=== PATIENT | male | born 1950 | race Caucasian/White ===

== ENCOUNTER 2021-11-19 00:38 | Inpatient (IN) ==
[2021-11-19] MEDS ORDERED: cefTRIAXone 2,000 MG in 0.9 % Sodium Chloride 10 ML IVP ONE (00:40)
[2021-11-19] MEDS ORDERED: Azithromycin 500 MG in 0.9 % Sodium Chloride 250 ML IVPB ONE (00:40)
[2021-11-19] MEDS ORDERED: Haloperidol Lactate 5 MG/ML VIAL IVP ONE ×2 (00:42→23:04)
[2021-11-19 01:55] LABS: Basophils % 0.5 %; Eosinophils # 0.2 K/mcL (0.0-0.6); Eosinophils % 1.9 %; Hematocrit 43.7 % (37.5-50.1); Hemoglobin 14.6 g/dL (12.9-16.9); Immature Granulocytes % 0.7 % (0-4); Lymphocytes # 1.9 K/mcL (0.6-4.6); Lymphocytes % 21.5 %; Mean Corpuscular HGB Conc 33.4 g/dL (31.6-35.5); Mean Corpuscular Hemoglobin 31.3 pg (28.0-33.3); Mean Corpuscular Volume 93.8 fL (83.0-100.0); Mean Platelet Volume 10.3 fL (9.4-12.4); Monocytes # 0.7 K/mcL (0.0-1.3); Monocytes % 7.9 %; Neutrophils # 5.8 K/mcL (1.6-8.9); Platelet Count 272 K/mcL (140-400); Red Blood Count 4.66 M/mcL (4.19-5.50); Red Cell Distribution Width 12.5 % (11.5-14.5); Segmented Neutrophils % 67.5 %; White Blood Count 8.6 K/mcL (4.3-11.1)
[2021-11-19 02:01] LABS: INR 1.3; Prothrombin Time 14.8 Seconds (9.4-12.1)
[2021-11-19 02:22] LABS: Carbamazepine (Tegretol) 7 mcg/mL (4-12); Valproate 41 mcg/mL (50-100)
[2021-11-19 02:26] LABS: Alanine Aminotransferase 15 Units/L (7-52); Albumin 3.7 g/dL (3.5-5.7); Alkaline Phosphatase 77 Units/L (34-104); Aspartate Amino Transferase 22 Units/L (13-39); BUN/Creatinine Ratio 29 (6-26); Bilirubin,Indirect 0.3 mg/dL (0.0-1.0); Bilirubin,Total 0.3 mg/dL (0.3-1.0); Blood Urea Nitrogen 15 mg/dL (8-23); Calcium 9.8 mg/dL (8.6-10.3); Carbon Dioxide 30 mEq/L (23-29); Chloride 93 mEq/L (98-107); Globulin 3.7 g/dL (2.4-3.5); Glucose 121 mg/dL (70-105); Osmolality,Calculated 280 (280-300); Potassium 4.6 mEq/L (3.5-5.1); Sodium 134 mEq/L (136-145); Total Protein 7.4 g/dL (6.4-8.9); Troponin I 0.04 ng/mL (< 0.04); eGFR For African Americans > 60 (> 60); eGFR For Non-African Americans > 60 (> 60)
[2021-11-19 02:29] LABS: Platelet Estimate Normal (Normal)
[2021-11-19] MEDS ORDERED: 0.9 % Sodium Chloride 1,000 ML ONE (03:12)
[2021-11-19] MEDS ORDERED: Naloxone 0.4 MG/ML INJ IVP PRN (03:15)
[2021-11-19] MEDS ORDERED: 0.9 % Sodium Chloride 1,000 ML IVC SCH (03:15)
[2021-11-19] MEDS ORDERED: Albuterol 2.5 MG/3 ML NEBULIZER IH PRN (03:15)
[2021-11-19] MEDS: Ipratropium/Albuterol Neb 3 ML IH SCH ×3 (03:52→14:39)
[2021-11-19] MEDS ORDERED: NON-FORMULARY MEDICATION 1 EACH EACH (Alendronate Sodium 70 MG Tablet) PO SCH (08:00)
[2021-11-19] MEDS ORDERED: Albuterol 2.5 MG/3 ML NEBULIZER IH SCH (09:45)
[2021-11-19] MEDS: *HR* Enoxaparin 40 MG/0.4 ML SYRINGE SQ SCH (09:59)
[2021-11-19] MEDS: CarBAMazepine XR (12 hr) 100 MG TAB PO SCH ×2 (09:59→21:42)
[2021-11-19] MEDS: (Clobazam [Onfi] 10 MG Tablet) PO SCH ×3 (10:00→21:45)
[2021-11-19] MEDS: clonazePAM 0.5 MG TABLET PO SCH ×3 (10:00→21:51)
[2021-11-19] MEDS: Divalproex (24 HR) 500 MG TABLET PO SCH (10:00)
[2021-11-19] MEDS: (Ketotifen Fumarate [Zaditor] 5 ML Drops) OP SCH ×2 (10:00→21:53)
[2021-11-19] MEDS: Multivit/Ca/Min/Fe/FA 1 TAB TABLET PO SCH (10:00)
[2021-11-19] MEDS: Aspirin Enteric Coated 81 MG Tablet PO SCH (10:00)
[2021-11-19] MEDS: Potassium Chloride Elixir 20 MEQ/15 ML UDC PO SCH ×2 (10:01→21:42)
[2021-11-19] MEDS: Levothyroxine 25 MCG TABLET PO SCH (10:06)
[2021-11-19] MEDS: levETIRAcetam 250 MG TABLET PO SCH ×2 (10:07→21:42)
[2021-11-19 10:45] LABS: Adenovirus Not Detected (Not Detect); Coronavirus 229E Not Detected (Not Detect); Coronavirus HKU1 Not Detected (Not Detect); Coronavirus NL63 Not Detected (Not Detect); Coronavirus OC43 Not Detected (Not Detect); Human Metapneumovirus Not Detected (Not Detect); Human Rhinovirus/Enterovirus Not Detected (Not Detect); Influenza A Subtype 2009 H1 Not Detected (Not Detect); SARS-CoV-2 Not Detected (Not Detect)
[2021-11-19 10:46] LABS: Bordetella Pertussis Not Detected (Not Detect); Chlamydophila pneumoniae Not Detected (Not Detect); Influenza B Not Detected (Not Detect); Mycoplasma pneumoniae Not Detected (Not Detect); Parainfluenza Virus 1 Not Detected (Not Detect); Parainfluenza Virus 2 Not Detected (Not Detect); Parainfluenza Virus 3 Not Detected (Not Detect); Parainfluenza Virus 4 Not Detected (Not Detect); Respiratory Syncytial Virus Not Detected (Not Detect)
[2021-11-19] MEDS: Albuterol 2.5 MG/3 ML NEBULIZER IH SCH ×4 (11:19→23:50)
[2021-11-19] MEDS: hydroCHLOROthiazide 25 MG TABLET PO SCH (12:41)
[2021-11-19] MEDS: cefTRIAXone 2,000 MG in 0.9 % Sodium Chloride Mini Bag 100 ML IVPB SCH (14:09)
[2021-11-19] MEDS: Azithromycin 500 MG in 0.9 % Sodium Chloride 250 ML IVPB SCH (15:17)
[2021-11-19] MEDS: traZODone 50 MG TABLET PO SCH (21:44)
[2021-11-19] MEDS: Melatonin 3 MG TABLET PO SCH (21:50)
[2021-11-20] MEDS: Albuterol 2.5 MG/3 ML NEBULIZER IH SCH ×5 (04:00→20:39)
[2021-11-20] MEDS: *HR* Enoxaparin 40 MG/0.4 ML SYRINGE SQ SCH (06:24)
[2021-11-20] MEDS: Levothyroxine 25 MCG TABLET PO SCH (06:24)
[2021-11-20 08:59] LABS: Basophils % 0.4 %; Eosinophils # 0.1 K/mcL (0.0-0.6); Eosinophils % 1.8 %; Hematocrit 37.5 % (37.5-50.1); Hemoglobin 12.5 g/dL (12.9-16.9); Immature Granulocytes % 0.4 % (0-4); Lymphocytes # 1.6 K/mcL (0.6-4.6); Lymphocytes % 28.2 %; Mean Corpuscular HGB Conc 33.3 g/dL (31.6-35.5); Mean Corpuscular Volume 93.1 fL (83.0-100.0); Mean Platelet Volume 9.8 fL (9.4-12.4); Monocytes # 0.6 K/mcL (0.0-1.3); Monocytes % 11.1 %; Neutrophils # 3.3 K/mcL (1.6-8.9); Platelet Count 241 K/mcL (140-400); Red Blood Count 4.03 M/mcL (4.19-5.50); Segmented Neutrophils % 58.1 %; White Blood Count 5.6 K/mcL (4.3-11.1)
[2021-11-20 09:04] LABS: BUN/Creatinine Ratio 23 (6-26); Blood Urea Nitrogen 10 mg/dL (8-23); Calcium 8.9 mg/dL (8.6-10.3); Carbon Dioxide 35 mEq/L (23-29); Chloride 93 mEq/L (98-107); Glucose 136 mg/dL (70-105); Osmolality,Calculated 279 (280-300); Potassium 3.7 mEq/L (3.5-5.1); Sodium 134 mEq/L (136-145); eGFR For African Americans > 60 (> 60); eGFR For Non-African Americans > 60 (> 60)
[2021-11-20] MEDS: cefTRIAXone 2,000 MG in 0.9 % Sodium Chloride Mini Bag 100 ML IVPB SCH (09:56)
[2021-11-20] MEDS: Azithromycin 500 MG in 0.9 % Sodium Chloride 250 ML IVPB SCH (09:57)
[2021-11-20] MEDS: Divalproex (24 HR) 500 MG TABLET PO SCH (09:58)
[2021-11-20] MEDS: (Clobazam [Onfi] 10 MG Tablet) PO SCH ×2 (09:58→21:32)
[2021-11-20] MEDS: Aspirin Enteric Coated 81 MG Tablet PO SCH (09:58)
[2021-11-20] MEDS: CarBAMazepine XR (12 hr) 100 MG TAB PO SCH ×2 (09:58→21:33)
[2021-11-20] MEDS: levETIRAcetam 250 MG TABLET PO SCH ×2 (09:58→21:32)
[2021-11-20] MEDS: hydroCHLOROthiazide 25 MG TABLET PO SCH (09:59)
[2021-11-20] MEDS: Potassium Chloride Elixir 20 MEQ/15 ML UDC PO SCH ×2 (09:59→21:32)
[2021-11-20] MEDS: clonazePAM 0.5 MG TABLET PO SCH ×3 (09:59→21:32)
[2021-11-20] MEDS: (Ketotifen Fumarate [Zaditor] 5 ML Drops) OP SCH ×2 (09:59→21:32)
[2021-11-20] MEDS: Multivit/Ca/Min/Fe/FA 1 TAB TABLET PO SCH (10:00)
[2021-11-20] MEDS ORDERED: Iopamidol - 370 500 ML MLS IVP ONE (10:51)
[2021-11-20 15:53] LABS: A.calcoaceticus-baumannii cplx Not Detected (Not Detect); Bacteroides fragilis by PCR Not Detected (Not Detect); Candida albicans by PCR Not Detected (Not Detect); Candida auris by PCR Not Detected (Not Detect); Candida glabrata by PCR Not Detected (Not Detect); Candida krusei by PCR Not Detected (Not Detect); Candida parapsilosis by PCR Not Detected (Not Detect); Candida tropicalis by PCR Not Detected (Not Detect); Crypto. neoformans/gattii PCR Not Detected (Not Detect); Enterobacter cloacae Cmplx PCR Not Detected (Not Detect); Enterobacterales by PCR Not Detected (Not Detect); Enterococcus faecalis by PCR Not Detected (Not Detect); Enterococcus faecium by PCR Not Detected (Not Detect); Escherichia coli by PCR Not Detected (Not Detect); Klebs. pneumoniae group by PCR Not Detected (Not Detect); Klebsiella aerogenes by PCR Not Detected (Not Detect); Klebsiella oxytoca by PCR Not Detected (Not Detect); Proteus by PCR Not Detected (Not Detect); Pseudomonas aeruginosa by PCR Not Detected (Not Detect); Salmonella species by PCR Not Detected (Not Detect); Serratia marcescens by PCR Not Detected (Not Detect); Staph epidermidis by PCR DETECTED (Not Detect); Staph lugdunensis by PCR Not Detected (Not Detect); Staphylococcus aureus by PCR Not Detected (Not Detect); Stenotrophomonas maltophilia Not Detected (Not Detect); Streptococcus agalactiae(B)PCR Not Detected (Not Detect); Streptococcus by PCR Not Detected (Not Detect); Streptococcus pneumoniae PCR Not Detected (Not Detect); Streptococcus pyogenes (A) PCR Not Detected (Not Detect); mecA/C Methicillin-Resist Gene DETECTED (Not Detect)
[2021-11-20] MEDS ORDERED: haloperidoL 1 MG TABLET PO PRN (16:22)
[2021-11-20] MEDS: Melatonin 3 MG TABLET PO SCH (21:33)
[2021-11-20] MEDS: traZODone 50 MG TABLET PO SCH (21:33)
[2021-11-21] MEDS: Albuterol 2.5 MG/3 ML NEBULIZER IH SCH ×6 (00:46→20:38)
[2021-11-21] MEDS: *HR* Enoxaparin 40 MG/0.4 ML SYRINGE SQ SCH (06:20)
[2021-11-21] MEDS: Levothyroxine 25 MCG TABLET PO SCH (06:21)
[2021-11-21 07:36] LABS: Basophils % 0.5 %; Eosinophils # 0.2 K/mcL (0.0-0.6); Eosinophils % 2.8 %; Hematocrit 40.1 % (37.5-50.1); Hemoglobin 13.3 g/dL (12.9-16.9); Immature Granulocytes % 0.3 % (0-4); Lymphocytes # 1.2 K/mcL (0.6-4.6); Lymphocytes % 20.7 %; Mean Corpuscular HGB Conc 33.2 g/dL (31.6-35.5); Mean Corpuscular Hemoglobin 30.7 pg (28.0-33.3); Mean Corpuscular Volume 92.6 fL (83.0-100.0); Mean Platelet Volume 9.6 fL (9.4-12.4); Monocytes # 0.6 K/mcL (0.0-1.3); Monocytes % 10.8 %; Neutrophils # 3.7 K/mcL (1.6-8.9); Platelet Count 232 K/mcL (140-400); Red Blood Count 4.33 M/mcL (4.19-5.50); Red Cell Distribution Width 12.1 % (11.5-14.5); Segmented Neutrophils % 64.9 %; White Blood Count 5.8 K/mcL (4.3-11.1)
[2021-11-21 07:54] LABS: BUN/Creatinine Ratio 22 (6-26); Blood Urea Nitrogen 12 mg/dL (8-23); Calcium 8.7 mg/dL (8.6-10.3); Carbon Dioxide 36 mEq/L (23-29); Chloride 93 mEq/L (98-107); Glucose 114 mg/dL (70-105); Osmolality,Calculated 279 (280-300); Potassium 3.4 mEq/L (3.5-5.1); Sodium 134 mEq/L (136-145); eGFR For African Americans > 60 (> 60); eGFR For Non-African Americans > 60 (> 60)
[2021-11-21] MEDS: CarBAMazepine XR (12 hr) 100 MG TAB PO SCH ×2 (09:33→20:03)
[2021-11-21] MEDS: levETIRAcetam 250 MG TABLET PO SCH ×2 (09:33→20:03)
[2021-11-21] MEDS: clonazePAM 0.5 MG TABLET PO SCH ×3 (09:34→20:02)
[2021-11-21] MEDS: Aspirin Enteric Coated 81 MG Tablet PO SCH (09:34)
[2021-11-21] MEDS: Divalproex (24 HR) 500 MG TABLET PO SCH (09:34)
[2021-11-21] MEDS: hydroCHLOROthiazide 25 MG TABLET PO SCH (09:35)
[2021-11-21] MEDS: cefTRIAXone 2,000 MG in 0.9 % Sodium Chloride Mini Bag 100 ML IVPB SCH (09:35)
[2021-11-21] MEDS: Multivit/Ca/Min/Fe/FA 1 TAB TABLET PO SCH (09:35)
[2021-11-21] MEDS: (Clobazam [Onfi] 10 MG Tablet) PO SCH ×2 (09:36→22:15)
[2021-11-21] MEDS: Potassium Chloride Elixir 20 MEQ/15 ML UDC PO SCH ×2 (09:36→20:04)
[2021-11-21] MEDS: (Ketotifen Fumarate [Zaditor] 5 ML Drops) OP SCH ×2 (09:59→22:15)
[2021-11-21] MEDS ORDERED: Perflutren Lipid Microsphere 1.3 ML in 0.9 % Sodium Chloride 8.7 ML IVP PRN (10:04)
[2021-11-21] MEDS: Azithromycin 500 MG in 0.9 % Sodium Chloride 250 ML IVPB SCH (11:03)
[2021-11-21] MEDS: traZODone 50 MG TABLET PO SCH (20:04)
[2021-11-21] MEDS: Melatonin 3 MG TABLET PO SCH (20:04)
[2021-11-22] MEDS: Albuterol 2.5 MG/3 ML NEBULIZER IH SCH ×3 (00:51→08:17)
[2021-11-22] MEDS: Levothyroxine 25 MCG TABLET PO SCH (06:38)
[2021-11-22] MEDS: *HR* Enoxaparin 40 MG/0.4 ML SYRINGE SQ SCH (06:38)
[2021-11-22 07:20] LABS: Basophils % 0.9 %; Eosinophils # 0.2 K/mcL (0.0-0.6); Eosinophils % 4.2 %; Hematocrit 39.4 % (37.5-50.1); Hemoglobin 13.4 g/dL (12.9-16.9); Immature Granulocytes % 0.2 % (0-4); Lymphocytes # 1.3 K/mcL (0.6-4.6); Lymphocytes % 27.4 %; Mean Corpuscular Hemoglobin 31.2 pg (28.0-33.3); Mean Corpuscular Volume 91.6 fL (83.0-100.0); Mean Platelet Volume 9.4 fL (9.4-12.4); Monocytes # 0.5 K/mcL (0.0-1.3); Monocytes % 10.1 %; Neutrophils # 2.6 K/mcL (1.6-8.9); Platelet Count 246 K/mcL (140-400); Red Cell Distribution Width 12.1 % (11.5-14.5); Segmented Neutrophils % 57.2 %; White Blood Count 4.6 K/mcL (4.3-11.1)
[2021-11-22 07:46] LABS: BUN/Creatinine Ratio 24 (6-26); Blood Urea Nitrogen 12 mg/dL (8-23); Carbon Dioxide 31 mEq/L (23-29); Chloride 98 mEq/L (98-107); Glucose 131 mg/dL (70-105); Osmolality,Calculated 284 (280-300); Potassium 3.7 mEq/L (3.5-5.1); Sodium 136 mEq/L (136-145); eGFR For African Americans > 60 (> 60); eGFR For Non-African Americans > 60 (> 60)
[2021-11-22] MEDS ORDERED: Albuterol 2.5 MG/3 ML NEBULIZER IH PRN (09:10)
[2021-11-22] MEDS: CarBAMazepine XR (12 hr) 100 MG TAB PO SCH ×2 (09:44→21:04)
[2021-11-22] MEDS: clonazePAM 0.5 MG TABLET PO SCH ×3 (09:44→21:04)
[2021-11-22] MEDS: levETIRAcetam 250 MG TABLET PO SCH ×2 (09:44→21:05)
[2021-11-22] MEDS: Potassium Chloride Elixir 20 MEQ/15 ML UDC PO SCH ×2 (09:45→21:05)
[2021-11-22] MEDS: Multivit/Ca/Min/Fe/FA 1 TAB TABLET PO SCH (09:45)
[2021-11-22] MEDS: Aspirin Enteric Coated 81 MG Tablet PO SCH (09:45)
[2021-11-22] MEDS: hydroCHLOROthiazide 25 MG TABLET PO SCH (09:45)
[2021-11-22] MEDS: Divalproex (24 HR) 500 MG TABLET PO SCH (09:45)
[2021-11-22] MEDS: (Clobazam [Onfi] 10 MG Tablet) PO SCH ×3 (09:51→21:06)
[2021-11-22] MEDS: (Ketotifen Fumarate [Zaditor] 5 ML Drops) OP SCH ×2 (09:56→21:18)
[2021-11-22] MEDS: cefTRIAXone 2,000 MG in 0.9 % Sodium Chloride Mini Bag 100 ML IVPB SCH ×2 (10:15→13:41)
[2021-11-22] MEDS: Piperacillin/Tazobactam 3.375 GM in 0.9 % Sodium Chloride Mini Bag 100 ML IVPB SCH ×4 (13:33→23:40)
[2021-11-22] MEDS: Azithromycin 500 MG in 0.9 % Sodium Chloride 250 ML IVPB SCH (13:41)
[2021-11-22] MEDS: Furosemide 20 MG/2 ML VIAL IVP SCH (14:43)
[2021-11-22] MEDS: traZODone 50 MG TABLET PO SCH (21:04)
[2021-11-22] MEDS: Melatonin 3 MG TABLET PO SCH (21:05)
[2021-11-23] MEDS: *HR* Enoxaparin 40 MG/0.4 ML SYRINGE SQ SCH (05:23)
[2021-11-23] MEDS: Levothyroxine 25 MCG TABLET PO SCH (05:23)
[2021-11-23 07:33] LABS: BUN/Creatinine Ratio 18 (6-26); Blood Urea Nitrogen 10 mg/dL (8-23); Calcium 8.8 mg/dL (8.6-10.3); Carbon Dioxide 31 mEq/L (23-29); Chloride 98 mEq/L (98-107); Glucose 98 mg/dL (70-105); Osmolality,Calculated 283 (280-300); Potassium 3.8 mEq/L (3.5-5.1); Sodium 137 mEq/L (136-145); eGFR For African Americans > 60 (> 60); eGFR For Non-African Americans > 60 (> 60)
[2021-11-23] MEDS: Potassium Chloride Elixir 20 MEQ/15 ML UDC PO SCH ×2 (08:52→20:23)
[2021-11-23] MEDS: CarBAMazepine XR (12 hr) 100 MG TAB PO SCH ×2 (08:53→20:24)
[2021-11-23] MEDS: Piperacillin/Tazobactam 3.375 GM in 0.9 % Sodium Chloride Mini Bag 100 ML IVPB SCH ×2 (08:53→17:27)
[2021-11-23] MEDS: levETIRAcetam 250 MG TABLET PO SCH ×2 (08:54→20:24)
[2021-11-23] MEDS: clonazePAM 0.5 MG TABLET PO SCH ×3 (08:54→20:24)
[2021-11-23] MEDS: Multivit/Ca/Min/Fe/FA 1 TAB TABLET PO SCH (08:54)
[2021-11-23] MEDS: Aspirin Enteric Coated 81 MG Tablet PO SCH (08:54)
[2021-11-23] MEDS: hydroCHLOROthiazide 25 MG TABLET PO SCH (08:54)
[2021-11-23] MEDS: Furosemide 20 MG/2 ML VIAL IVP SCH (08:55)
[2021-11-23] MEDS: Divalproex (24 HR) 500 MG TABLET PO SCH (08:55)
[2021-11-23] MEDS: (Clobazam [Onfi] 10 MG Tablet) PO SCH ×2 (08:55→20:25)
[2021-11-23] MEDS: (Ketotifen Fumarate [Zaditor] 5 ML Drops) OP SCH ×2 (08:57→20:25)
[2021-11-23] MEDS: traZODone 50 MG TABLET PO SCH (20:24)
[2021-11-23] MEDS: Melatonin 3 MG TABLET PO SCH (20:24)
[2021-11-24] MEDS: Piperacillin/Tazobactam 3.375 GM in 0.9 % Sodium Chloride Mini Bag 100 ML IVPB SCH ×3 (00:09→16:47)
[2021-11-24] MEDS: *HR* Enoxaparin 40 MG/0.4 ML SYRINGE SQ SCH (04:14)
[2021-11-24] MEDS: Levothyroxine 25 MCG TABLET PO SCH (04:14)
[2021-11-24] MEDS: Aspirin Enteric Coated 81 MG Tablet PO SCH (08:21)
[2021-11-24] MEDS: Divalproex (24 HR) 500 MG TABLET PO SCH (08:21)
[2021-11-24] MEDS: hydroCHLOROthiazide 25 MG TABLET PO SCH (08:22)
[2021-11-24] MEDS: clonazePAM 0.5 MG TABLET PO SCH ×3 (08:22→21:20)
[2021-11-24] MEDS: CarBAMazepine XR (12 hr) 100 MG TAB PO SCH ×2 (08:22→21:21)
[2021-11-24] MEDS: levETIRAcetam 250 MG TABLET PO SCH ×2 (08:22→21:19)
[2021-11-24] MEDS: Furosemide 20 MG/2 ML VIAL IVP SCH (08:23)
[2021-11-24] MEDS: (Clobazam [Onfi] 10 MG Tablet) PO SCH (08:23)
[2021-11-24] MEDS: Multivit/Ca/Min/Fe/FA 1 TAB TABLET PO SCH (08:23)
[2021-11-24] MEDS: Potassium Chloride Elixir 20 MEQ/15 ML UDC PO SCH ×2 (08:23→21:21)
[2021-11-24] MEDS: (Ketotifen Fumarate [Zaditor] 5 ML Drops) OP SCH (08:25)
[2021-11-24 15:04] VITALS: BP 118/84; PULSE 88; RESP 18; TEMP 99.4; O2SAT 93
[2021-11-24] MEDS: traZODone 50 MG TABLET PO SCH (21:20)
== END 2021-11-24 21:40 | disposition home health service (06) | DRG 177 ==
LOC: EMEROOPIK 00:38 → INPPIK 00:38
PROVIDERS: ADMIT Internal Medicine; ATTEND Family Medicine

== ENCOUNTER 2022-02-05 11:02 | Inpatient (IN) ==
[2022-02-05 11:40] LABS: ABG Base Excess 5 mEq/L (-2 to 3); ABG HCO3 32 mEq/L (21-27); ABG Oxygen Saturation 95 % (95-98); ABG PCO2 53 mmHg (35-45); ABG PH 7.39 pH Units (7.32-7.45); ABG PO2 81 mmHg (85-104); ABG TCO2 33 mEq/L (20-26)
[2022-02-05 11:47] LABS: INR 1.5; Prothrombin Time 17.2 Seconds (9.4-12.1)
[2022-02-05 11:51] LABS: White Blood Count 7.9 K/mcL (4.3-11.1)
[2022-02-05 11:52] LABS: Basophils % 0.3 %; Eosinophils % 0.4 %; Hematocrit 38.6 % (37.5-50.1); Hemoglobin 13.4 g/dL (12.9-16.9); Immature Granulocytes % 0.4 % (0-4); Lymphocytes # 0.9 K/mcL (0.6-4.6); Lymphocytes % 11.6 %; Mean Corpuscular HGB Conc 34.7 g/dL (31.6-35.5); Mean Corpuscular Hemoglobin 31.5 pg (28.0-33.3); Mean Corpuscular Volume 90.6 fL (83.0-100.0); Mean Platelet Volume 10.3 fL (9.4-12.4); Monocytes # 0.6 K/mcL (0.0-1.3); Monocytes % 7.4 %; Neutrophils # 6.3 K/mcL (1.6-8.9); Platelet Count 210 K/mcL (140-400); Red Blood Count 4.26 M/mcL (4.19-5.50); Red Cell Distribution Width 11.9 % (11.5-14.5); Segmented Neutrophils % 79.9 %
[2022-02-05 11:58] LABS: Clarity,Urine Clear (Clear); Color,Urine Yellow (Yellow)
[2022-02-05 11:59] LABS: Bilirubin,Urine Negative (Negative); Blood,Urine Small (Negative); Glucose,Urine (UA) 500 mg/dL (Normal); Ketones,Urine 15 mg/dL (Negative); Leukocyte Esterase,Urine Negative (Negative); Nitrite,Urine Negative (Negative); PH,Urine 8.5 pH Units (5.0-8.0); Protein,Urine 100 mg/dL (Neg-Trace); Urobilinogen,Urine Normal (Normal)
[2022-02-05 12:02] LABS: Bacteria,Urine Few per hpf (None-Few)
[2022-02-05 12:11] LABS: Troponin I 0.02 ng/mL (< 0.04)
[2022-02-05 12:12] LABS: Albumin 3.8 g/dL (3.5-5.7); Bilirubin,Direct 0.1 mg/dL (0.0-0.2); Bilirubin,Indirect 0.3 mg/dL (0.0-1.0); Bilirubin,Total 0.4 mg/dL (0.3-1.0); Globulin 3.8 g/dL (2.4-3.5); Total Protein 7.6 g/dL (6.4-8.9)
[2022-02-05 12:13] LABS: Sodium 133 mEq/L (136-145)
[2022-02-05 12:14] LABS: BUN/Creatinine Ratio 19 (6-26); Blood Urea Nitrogen 6 mg/dL (8-23); Calcium 9.5 mg/dL (8.6-10.3); Carbon Dioxide 33 mEq/L (23-29); Chloride 92 mEq/L (98-107); Glucose 178 mg/dL (70-105); Osmolality,Calculated 278 (280-300); Potassium 3.5 mEq/L (3.5-5.1)
[2022-02-05] MEDS: DilTIAZem 50 MG in 0.9 % Sodium Chloride 40 ML IVC SCH (12:39)
[2022-02-05] MEDS ORDERED: Azithromycin 500 MG in 0.9 % Sodium Chloride 250 ML IVPB ONE (13:38)
[2022-02-05] MEDS ORDERED: 0.9 % Sodium Chloride 500 ML IVC ONE (13:38)
[2022-02-05] MEDS ORDERED: Naloxone 0.4 MG/ML INJ IVP PRN (14:26)
[2022-02-05] MEDS ORDERED: NON-FORMULARY MEDICATION 1 EACH EACH (Alendronate Sodium 70 MG Tablet) PO SCH (14:30)
[2022-02-05] MEDS ORDERED: Haloperidol Lactate 5 MG/ML VIAL IVP PRN (14:53)
[2022-02-05] MEDS: Doxycycline 100 MG in 0.9 % Sodium Chloride Mini Bag 100 ML IVPB SCH (17:55)
[2022-02-05] MEDS ORDERED: 0.9 % Sodium Chloride 1,000 ML IVC SCH (19:45)
[2022-02-05] MEDS: clonazePAM 0.5 MG TABLET PO PRN (20:53)
[2022-02-05] MEDS: levETIRAcetam 250 MG TABLET PO SCH (20:53)
[2022-02-05] MEDS: CLOBAZAM 10 MG PO SCH (20:53)
[2022-02-05] MEDS: CarBAMazepine XR (12 hr) 100 MG TAB PO SCH (20:53)
[2022-02-05] MEDS: traZODone 50 MG TABLET PO SCH (20:54)
[2022-02-05] MEDS: Melatonin 3 MG TABLET PO SCH (20:54)
[2022-02-05] MEDS: KETOTIFEN FUMARATE OP SCH (20:55)
[2022-02-05] MEDS: Potassium Chloride Elixir 20 MEQ/15 ML UDC PO SCH (20:55)
[2022-02-06] MEDS: *HR* Enoxaparin 40 MG/0.4 ML SYRINGE SQ SCH (05:24)
[2022-02-06] MEDS: Levothyroxine 25 MCG TABLET PO SCH (05:24)
[2022-02-06] MEDS: Doxycycline 100 MG in 0.9 % Sodium Chloride Mini Bag 100 ML IVPB SCH ×2 (05:25→17:50)
[2022-02-06 07:38] LABS: Basophils % 0.4 %; Eosinophils # 0.1 K/mcL (0.0-0.6); Eosinophils % 2.5 %; Hemoglobin 11.6 g/dL (12.9-16.9); Immature Granulocytes % 0.5 % (0-4); Mean Corpuscular HGB Conc 33.1 g/dL (31.6-35.5); Mean Corpuscular Hemoglobin 31.6 pg (28.0-33.3); Mean Corpuscular Volume 95.4 fL (83.0-100.0); Monocytes # 0.7 K/mcL (0.0-1.3); Monocytes % 11.8 %; Neutrophils # 3.9 K/mcL (1.6-8.9); Platelet Count 196 K/mcL (140-400); Red Blood Count 3.67 M/mcL (4.19-5.50); Red Cell Distribution Width 12.4 % (11.5-14.5); Segmented Neutrophils % 67.8 %; White Blood Count 5.7 K/mcL (4.3-11.1)
[2022-02-06 07:57] LABS: BUN/Creatinine Ratio 15 (6-26); Blood Urea Nitrogen 11 mg/dL (8-23); Calcium 9.1 mg/dL (8.6-10.3); Carbon Dioxide 34 mEq/L (23-29); Chloride 98 mEq/L (98-107); Glucose 125 mg/dL (70-105); Magnesium 1.4 mg/dL (1.6-2.6); Osmolality,Calculated 283 (280-300); Potassium 4.2 mEq/L (3.5-5.1); Sodium 136 mEq/L (136-145)
[2022-02-06] MEDS ORDERED: cefTRIAXone 1,000 MG in 0.9 % Sodium Chloride Mini Bag 100 ML IVPB SCH (09:00)
[2022-02-06] MEDS: CLOBAZAM 10 MG PO SCH ×2 (10:10→20:41)
[2022-02-06] MEDS: hydroCHLOROthiazide 25 MG TABLET PO SCH (10:11)
[2022-02-06] MEDS: levETIRAcetam 250 MG TABLET PO SCH ×2 (10:11→20:41)
[2022-02-06] MEDS: Cholecalciferol (D-3) 1,000 UNIT (25MCG) TABLET PO SCH (10:12)
[2022-02-06] MEDS: Divalproex (24 HR) 500 MG TABLET PO SCH (10:13)
[2022-02-06] MEDS: Multivit/Ca/Min/Fe/FA 1 TAB TABLET PO SCH (10:13)
[2022-02-06] MEDS: CarBAMazepine XR (12 hr) 100 MG TAB PO SCH ×2 (10:13→20:41)
[2022-02-06] MEDS: Aspirin Enteric Coated 81 MG Tablet PO SCH (10:13)
[2022-02-06] MEDS: Potassium Chloride Elixir 20 MEQ/15 ML UDC PO SCH ×2 (11:37→20:42)
[2022-02-06] MEDS: KETOTIFEN FUMARATE OP SCH ×2 (11:37→20:42)
[2022-02-06] MEDS ORDERED: cefTRIAXone 1,000 MG in Water for inj. (sterile) 10 ML IVP SCH (14:00)
[2022-02-06] MEDS ORDERED: Scopolamine Patch 1.5 MG PATCH.TD72 ONE (17:08)
[2022-02-06] MEDS ORDERED: clonazePAM 0.5 MG TABLET ONE (17:56)
[2022-02-06] MEDS: clonazePAM 0.5 MG TABLET PO PRN ×2 (17:57→18:10)
[2022-02-06] MEDS: Scopolamine Patch 1.5 MG PATCH.TD72 TD SCH (19:35)
[2022-02-06] MEDS: Melatonin 3 MG TABLET PO SCH (20:41)
[2022-02-06] MEDS: traZODone 50 MG TABLET PO SCH (20:41)
[2022-02-06] MEDS: clonazePAM 0.5 MG TABLET PO SCH (21:00)
[2022-02-07] MEDS: *HR* Enoxaparin 40 MG/0.4 ML SYRINGE SQ SCH (06:26)
[2022-02-07] MEDS: Levothyroxine 25 MCG TABLET PO SCH (06:26)
[2022-02-07] MEDS: Doxycycline 100 MG in 0.9 % Sodium Chloride Mini Bag 100 ML IVPB SCH (06:27)
[2022-02-07 07:11] LABS: Basophils % 0.5 %; Eosinophils # 0.1 K/mcL (0.0-0.6); Eosinophils % 1.6 %; Hematocrit 36.9 % (37.5-50.1); Hemoglobin 12.1 g/dL (12.9-16.9); Immature Granulocytes % 1.2 % (0-4); Lymphocytes # 1.2 K/mcL (0.6-4.6); Lymphocytes % 20.5 %; Mean Corpuscular HGB Conc 32.8 g/dL (31.6-35.5); Mean Corpuscular Hemoglobin 31.3 pg (28.0-33.3); Mean Corpuscular Volume 95.6 fL (83.0-100.0); Monocytes # 0.8 K/mcL (0.0-1.3); Monocytes % 13.3 %; Neutrophils # 3.5 K/mcL (1.6-8.9); Platelet Count 209 K/mcL (140-400); Red Blood Count 3.86 M/mcL (4.19-5.50); Segmented Neutrophils % 62.9 %; White Blood Count 5.6 K/mcL (4.3-11.1)
[2022-02-07 08:05] LABS: BUN/Creatinine Ratio 28 (6-26); Blood Urea Nitrogen 14 mg/dL (8-23); Calcium 9.5 mg/dL (8.6-10.3); Carbon Dioxide 39 mEq/L (23-29); Chloride 97 mEq/L (98-107); Glucose 143 mg/dL (70-105); Magnesium 1.8 mg/dL (1.6-2.6); Osmolality,Calculated 295 (280-300); Potassium 4.5 mEq/L (3.5-5.1); Sodium 141 mEq/L (136-145)
[2022-02-07] MEDS: CarBAMazepine XR (12 hr) 100 MG TAB PO SCH ×2 (08:51→22:11)
[2022-02-07] MEDS: Divalproex (24 HR) 500 MG TABLET PO SCH (08:51)
[2022-02-07] MEDS: Cholecalciferol (D-3) 1,000 UNIT (25MCG) TABLET PO SCH (08:52)
[2022-02-07] MEDS: levETIRAcetam 250 MG TABLET PO SCH ×2 (08:52→22:08)
[2022-02-07] MEDS: Aspirin Enteric Coated 81 MG Tablet PO SCH (08:52)
[2022-02-07] MEDS: clonazePAM 0.5 MG TABLET PO SCH ×3 (08:53→22:15)
[2022-02-07] MEDS: hydroCHLOROthiazide 25 MG TABLET PO SCH (08:54)
[2022-02-07] MEDS: Multivit/Ca/Min/Fe/FA 1 TAB TABLET PO SCH (08:54)
[2022-02-07] MEDS: Potassium Chloride Elixir 20 MEQ/15 ML UDC PO SCH ×2 (08:56→22:16)
[2022-02-07] MEDS: CLOBAZAM 10 MG PO SCH (09:01)
[2022-02-07] MEDS: KETOTIFEN FUMARATE OP SCH ×2 (09:01→22:16)
[2022-02-07] MEDS: DilTIAZem 50 MG in 0.9 % Sodium Chloride 40 ML IVC SCH ×2 (11:48→12:09)
[2022-02-07] MEDS: Piperacillin/Tazobactam 3.375 GM in 0.9 % Sodium Chloride Mini Bag 100 ML IVPB SCH ×2 (12:08→22:15)
[2022-02-07] MEDS: Acetaminophen 325 MG TABLET PO PRN (12:08)
[2022-02-07] MEDS: Melatonin 3 MG TABLET PO SCH (22:08)
[2022-02-07] MEDS: traZODone 50 MG TABLET PO SCH (22:14)
[2022-02-08] MEDS: Levothyroxine 25 MCG TABLET PO SCH (06:29)
[2022-02-08] MEDS: *HR* Enoxaparin 40 MG/0.4 ML SYRINGE SQ SCH (06:29)
[2022-02-08] MEDS: CLOBAZAM 10 MG PO SCH ×3 (07:31→20:27)
[2022-02-08 07:47] LABS: Basophils % 0.4 %; Eosinophils # 0.2 K/mcL (0.0-0.6); Eosinophils % 3.2 %; Hematocrit 35.3 % (37.5-50.1); Hemoglobin 11.4 g/dL (12.9-16.9); Immature Granulocytes % 0.6 % (0-4); Lymphocytes # 1.7 K/mcL (0.6-4.6); Lymphocytes % 32.1 %; Mean Corpuscular HGB Conc 32.3 g/dL (31.6-35.5); Mean Corpuscular Hemoglobin 31.1 pg (28.0-33.3); Mean Corpuscular Volume 96.4 fL (83.0-100.0); Mean Platelet Volume 9.9 fL (9.4-12.4); Monocytes # 0.9 K/mcL (0.0-1.3); Monocytes % 16.3 %; Neutrophils # 2.5 K/mcL (1.6-8.9); Platelet Count 213 K/mcL (140-400); Red Blood Count 3.66 M/mcL (4.19-5.50); Red Cell Distribution Width 11.9 % (11.5-14.5); Segmented Neutrophils % 47.4 %; White Blood Count 5.3 K/mcL (4.3-11.1)
[2022-02-08] MEDS ORDERED: Piperacillin/Tazobactam 3.375 GM in 0.9 % Sodium Chloride Mini Bag 100 ML IVPB SCH (08:00)
[2022-02-08] MEDS: CarBAMazepine XR (12 hr) 100 MG TAB PO SCH (08:20)
[2022-02-08] MEDS: levETIRAcetam 250 MG TABLET PO SCH ×2 (08:20→20:24)
[2022-02-08] MEDS: Cholecalciferol (D-3) 1,000 UNIT (25MCG) TABLET PO SCH (08:21)
[2022-02-08] MEDS: hydroCHLOROthiazide 25 MG TABLET PO SCH (08:21)
[2022-02-08] MEDS: clonazePAM 0.5 MG TABLET PO SCH ×3 (08:21→20:25)
[2022-02-08] MEDS: Multivit/Ca/Min/Fe/FA 1 TAB TABLET PO SCH (08:21)
[2022-02-08] MEDS: Potassium Chloride Elixir 20 MEQ/15 ML UDC PO SCH ×2 (08:22→20:27)
[2022-02-08] MEDS: KETOTIFEN FUMARATE OP SCH ×2 (08:22→21:18)
[2022-02-08] MEDS: Aspirin Enteric Coated 81 MG Tablet PO SCH (08:28)
[2022-02-08] MEDS ORDERED: DilTIAZem 50 MG in 0.9 % Sodium Chloride 40 ML IVC PRN (08:30)
[2022-02-08] MEDS: Acetaminophen 325 MG TABLET PO PRN (08:39)
[2022-02-08 08:44] LABS: BUN/Creatinine Ratio 27 (6-26); Blood Urea Nitrogen 14 mg/dL (8-23); Calcium 9.6 mg/dL (8.6-10.3); Carbon Dioxide 43 mEq/L (23-29); Chloride 95 mEq/L (98-107); Glucose 116 mg/dL (70-105); Magnesium 1.7 mg/dL (1.6-2.6); Osmolality,Calculated 293 (280-300); Potassium 4.4 mEq/L (3.5-5.1); Sodium 141 mEq/L (136-145)
[2022-02-08] MEDS: Doxycycline 100 MG in 0.9 % Sodium Chloride Mini Bag 100 ML IVPB SCH ×4 (10:43→21:18)
[2022-02-08 11:22] LABS: ABG Base Excess 11 mEq/L (-2 to 3); ABG HCO3 41 mEq/L (21-27); ABG Oxygen Saturation 96 % (95-98); ABG PCO2 72 mmHg (35-45); ABG PH 7.36 pH Units (7.32-7.45); ABG PO2 86 mmHg (85-104); ABG TCO2 43 mEq/L (20-26)
[2022-02-08] MEDS: Piperacillin/Tazobactam 3.375 GM in 0.9 % Sodium Chloride Mini Bag 100 ML IVPB SCH ×3 (11:38→20:19)
[2022-02-08 12:06] LABS: Adenovirus Not Detected (Not Detect); Bordetella Pertussis Not Detected (Not Detect); Chlamydophila pneumoniae Not Detected (Not Detect); Coronavirus 229E Not Detected (Not Detect); Coronavirus HKU1 Not Detected (Not Detect); Coronavirus NL63 Not Detected (Not Detect); Coronavirus OC43 Not Detected (Not Detect); Human Metapneumovirus Not Detected (Not Detect); Human Rhinovirus/Enterovirus Not Detected (Not Detect); Influenza A Subtype 2009 H1 Not Detected (Not Detect); Influenza B Not Detected (Not Detect); Mycoplasma pneumoniae Not Detected (Not Detect); Parainfluenza Virus 1 Not Detected (Not Detect); Parainfluenza Virus 2 Not Detected (Not Detect); Parainfluenza Virus 3 Not Detected (Not Detect); Parainfluenza Virus 4 Not Detected (Not Detect); Respiratory Syncytial Virus Not Detected (Not Detect); SARS-CoV-2 Not Detected (Not Detect)
[2022-02-08 16:11] LABS: ABG Base Excess 12 mEq/L (-2 to 3); ABG HCO3 38 mEq/L (21-27); ABG Oxygen Saturation 92 % (95-98); ABG PCO2 52 mmHg (35-45); ABG PH 7.47 pH Units (7.32-7.45); ABG PO2 63 mmHg (85-104); ABG TCO2 39 mEq/L (20-26)
[2022-02-08] MEDS ORDERED: Divalproex (24 HR) 500 MG TABLET PO SCH (17:00)
[2022-02-08] MEDS: Divalproex Sodium 125 MG Sprinkle Capsule (DR) PO SCH (17:42)
[2022-02-08] MEDS: CarBAMazepine 100 MG TABLET PO SCH (17:43)
[2022-02-08] MEDS: Melatonin 3 MG TABLET PO SCH (20:23)
[2022-02-08] MEDS: traZODone 50 MG TABLET PO SCH (20:25)
[2022-02-09] MEDS: CarBAMazepine 100 MG TABLET PO SCH ×4 (02:11→17:13)
[2022-02-09] MEDS: *HR* Enoxaparin 40 MG/0.4 ML SYRINGE SQ SCH (05:18)
[2022-02-09] MEDS: Divalproex Sodium 125 MG Sprinkle Capsule (DR) PO SCH ×2 (05:19→17:12)
[2022-02-09] MEDS: Piperacillin/Tazobactam 3.375 GM in 0.9 % Sodium Chloride Mini Bag 100 ML IVPB SCH ×3 (05:19→21:19)
[2022-02-09 08:16] LABS: Basophils % 0.5 %; Eosinophils # 0.2 K/mcL (0.0-0.6); Eosinophils % 5.5 %; Hematocrit 33.9 % (37.5-50.1); Hemoglobin 10.9 g/dL (12.9-16.9); Immature Granulocytes % 0.2 % (0-4); Lymphocytes # 1.5 K/mcL (0.6-4.6); Lymphocytes % 37.2 %; Mean Corpuscular HGB Conc 32.2 g/dL (31.6-35.5); Mean Corpuscular Hemoglobin 31.1 pg (28.0-33.3); Mean Corpuscular Volume 96.6 fL (83.0-100.0); Monocytes # 0.6 K/mcL (0.0-1.3); Monocytes % 14.1 %; Neutrophils # 1.7 K/mcL (1.6-8.9); Platelet Count 203 K/mcL (140-400); Red Blood Count 3.51 M/mcL (4.19-5.50); Red Cell Distribution Width 11.9 % (11.5-14.5); Segmented Neutrophils % 42.5 %
[2022-02-09] MEDS ORDERED: Levothyroxine Sodium 100 MCG VIAL IVP SCH (09:00)
[2022-02-09] MEDS: Doxycycline 100 MG in 0.9 % Sodium Chloride Mini Bag 100 ML IVPB SCH ×2 (09:16→21:18)
[2022-02-09] MEDS: CLOBAZAM 10 MG PO SCH ×2 (09:17→21:16)
[2022-02-09] MEDS: levETIRAcetam 250 MG TABLET PO SCH ×2 (09:17→21:15)
[2022-02-09] MEDS: Aspirin 81 MG TAB.CHEW PO SCH (09:17)
[2022-02-09] MEDS: clonazePAM 0.5 MG TABLET PO SCH ×3 (09:18→21:14)
[2022-02-09] MEDS: Multivit/Ca/Min/Fe/FA 1 TAB TABLET PO SCH (09:19)
[2022-02-09] MEDS: hydroCHLOROthiazide 25 MG TABLET PO SCH (09:19)
[2022-02-09] MEDS: Docusate Oral Soln 100 MG/10 ML UDC PO SCH (09:19)
[2022-02-09] MEDS: Potassium Chloride Elixir 20 MEQ/15 ML UDC PO SCH ×2 (09:20→21:14)
[2022-02-09] MEDS: Cholecalciferol (D-3) 1,000 UNIT (25MCG) TABLET PO SCH (09:33)
[2022-02-09] MEDS: KETOTIFEN FUMARATE OP SCH ×2 (09:40→21:00)
[2022-02-09 09:54] LABS: BUN/Creatinine Ratio 38 (6-26); Blood Urea Nitrogen 17 mg/dL (8-23); Calcium 9.4 mg/dL (8.6-10.3); Carbon Dioxide 44 mEq/L (23-29); Chloride 96 mEq/L (98-107); Glucose 116 mg/dL (70-105); Osmolality,Calculated 299 (280-300); Sodium 143 mEq/L (136-145)
[2022-02-09] MEDS: Levothyroxine 25 MCG TABLET PO SCH (13:09)
[2022-02-09] MEDS: Scopolamine Patch 1.5 MG PATCH.TD72 TD SCH (15:40)
[2022-02-09] MEDS: traZODone 50 MG TABLET PO SCH (21:15)
[2022-02-09] MEDS: Melatonin 3 MG TABLET PO SCH (21:15)
[2022-02-09] MEDS: acetaZOLAMIDE 250 MG TABLET PO SCH (21:27)
[2022-02-10] MEDS: CarBAMazepine 100 MG TABLET PO SCH ×4 (02:29→17:48)
[2022-02-10] MEDS: Piperacillin/Tazobactam 3.375 GM in 0.9 % Sodium Chloride Mini Bag 100 ML IVPB SCH ×2 (05:44→13:02)
[2022-02-10] MEDS: Divalproex Sodium 125 MG Sprinkle Capsule (DR) PO SCH ×2 (05:44→17:48)
[2022-02-10] MEDS: Levothyroxine 25 MCG TABLET PO SCH (05:45)
[2022-02-10] MEDS: *HR* Enoxaparin 40 MG/0.4 ML SYRINGE SQ SCH (05:45)
[2022-02-10] MEDS: Potassium Chloride Elixir 20 MEQ/15 ML UDC PO SCH (08:57)
[2022-02-10] MEDS: KETOTIFEN FUMARATE OP SCH (08:58)
[2022-02-10] MEDS: Docusate Oral Soln 100 MG/10 ML UDC PO SCH (08:58)
[2022-02-10] MEDS: levETIRAcetam 250 MG TABLET PO SCH (08:58)
[2022-02-10] MEDS: acetaZOLAMIDE 250 MG TABLET PO SCH (08:59)
[2022-02-10] MEDS: Multivit/Ca/Min/Fe/FA 1 TAB TABLET PO SCH (08:59)
[2022-02-10] MEDS: Aspirin 81 MG TAB.CHEW PO SCH (08:59)
[2022-02-10] MEDS: clonazePAM 0.5 MG TABLET PO SCH ×2 (08:59→17:50)
[2022-02-10] MEDS: Cholecalciferol (D-3) 1,000 UNIT (25MCG) TABLET PO SCH (09:00)
[2022-02-10 09:46] LABS: BUN/Creatinine Ratio 23 (6-26); Blood Urea Nitrogen 11 mg/dL (8-23); Calcium 9.5 mg/dL (8.6-10.3); Carbon Dioxide 35 mEq/L (23-29); Chloride 97 mEq/L (98-107); Glucose 130 mg/dL (70-105); Osmolality,Calculated 287 (280-300); Potassium 3.5 mEq/L (3.5-5.1); Sodium 138 mEq/L (136-145)
[2022-02-10] MEDS: CLOBAZAM 10 MG PO SCH (10:33)
[2022-02-10] MEDS: Doxycycline 100 MG in 0.9 % Sodium Chloride Mini Bag 100 ML IVPB SCH (10:33)
[2022-02-10 11:00] VITALS: RESP 17
[2022-02-10 16:42] VITALS: BP 142/74; PULSE 63; TEMP 98.5; O2SAT 96
== END 2022-02-10 18:15 | disposition home health service (06) | DRG 189 ==
LOC: EMEROOPIK 11:02 → INPPIK 11:02
PROVIDERS: ADMIT Internal Medicine; ATTEND Internal Medicine

== ENCOUNTER 2022-02-23 05:04 | Inpatient (IN) ==
[2022-02-23] MEDS ORDERED: levoFLOXacin 750 MG/150 ML 750 MG/150 ML BAG IVPB ONE (07:16)
[2022-02-23] MEDS ORDERED: Piperacillin/Tazobactam 4.5 GM in 0.9 % Sodium Chloride Mini Bag 100 ML IVPB ONE (07:17)
[2022-02-23 07:49] LABS: Basophils % 0.3 %; Eosinophils # 0.3 K/mcL (0.0-0.6); Eosinophils % 5.9 %; Hemoglobin 12.2 g/dL (12.9-16.9); Immature Granulocytes % 0.5 % (0-4); Lymphocytes # 1.3 K/mcL (0.6-4.6); Lymphocytes % 22.5 %; Mean Corpuscular HGB Conc 32.1 g/dL (31.6-35.5); Mean Corpuscular Hemoglobin 31.5 pg (28.0-33.3); Mean Corpuscular Volume 98.2 fL (83.0-100.0); Mean Platelet Volume 11.1 fL (9.4-12.4); Monocytes # 0.6 K/mcL (0.0-1.3); Monocytes % 10.1 %; Neutrophils # 3.5 K/mcL (1.6-8.9); Platelet Count 190 K/mcL (140-400); Red Blood Count 3.87 M/mcL (4.19-5.50); Red Cell Distribution Width 12.8 % (11.5-14.5); Segmented Neutrophils % 60.7 %; White Blood Count 5.8 K/mcL (4.3-11.1)
[2022-02-23 08:12] LABS: BUN/Creatinine Ratio 44 (6-26); Blood Urea Nitrogen 19 mg/dL (8-23); Calcium 9.6 mg/dL (8.6-10.3); Carbon Dioxide 40 mEq/L (23-29); Chloride 101 mEq/L (98-107); Glucose 112 mg/dL (70-105); Osmolality,Calculated 309 (280-300); Potassium 3.7 mEq/L (3.5-5.1); Sodium 148 mEq/L (136-145)
[2022-02-23] MEDS ORDERED: Naloxone 0.4 MG/ML INJ IVP PRN ×2 (10:25→10:28)
[2022-02-23] MEDS ORDERED: clonazePAM 0.5 MG TABLET PO PRN (10:26)
[2022-02-23] MEDS ORDERED: Ondansetron 4 MG/2 ML VIAL IVP PRN (10:28)
[2022-02-23] MEDS ORDERED: CLOBAZAM 10 MG PO SCH (10:30)
[2022-02-23] MEDS ORDERED: NON-FORMULARY MEDICATION 1 EACH EACH (Ketotifen Fumarate [Zaditor] 5 ML Drops) BOTH EYES SCH (10:30)
[2022-02-23] MEDS ORDERED: Vancomycin 1,500 MG/265 ML IV.SOLN IVPB ONE ×2 (11:09→15:00)
[2022-02-23] MEDS: Ipratropium/Albuterol Neb 3 ML IH SCH ×3 (11:28→21:43)
[2022-02-23] MEDS: Divalproex (24 HR) 500 MG TABLET PO SCH (14:22)
[2022-02-23] MEDS: hydroCHLOROthiazide 25 MG TABLET PO SCH (14:22)
[2022-02-23] MEDS: Aspirin Enteric Coated 81 MG Tablet PO SCH (14:22)
[2022-02-23] MEDS: Clobazam [Clobazam] 10 MG Tablet PO SCH ×2 (14:23→20:37)
[2022-02-23] MEDS: Cholecalciferol (D-3) 1,000 UNIT (25MCG) TABLET PO SCH ×2 (14:23→20:36)
[2022-02-23] MEDS: CarBAMazepine XR (12 hr) 100 MG TAB PO SCH ×2 (14:27→20:36)
[2022-02-23] MEDS: levETIRAcetam 250 MG TABLET PO SCH ×2 (14:27→20:36)
[2022-02-23] MEDS: Potassium Chloride Elixir 20 MEQ/15 ML UDC PO SCH ×2 (14:28→20:37)
[2022-02-23] MEDS ORDERED: Haloperidol Lactate 5 MG/ML VIAL IVP PRN (15:35)
[2022-02-23] MEDS: Levothyroxine 25 MCG TABLET PO SCH (15:48)
[2022-02-23] MEDS: Piperacillin/Tazobactam 3.375 GM in 0.9 % Sodium Chloride Mini Bag 100 ML IVPB SCH (17:47)
[2022-02-23 19:19] LABS: Adenovirus Not Detected (Not Detect); Bordetella Pertussis Not Detected (Not Detect); Chlamydophila pneumoniae Not Detected (Not Detect); Coronavirus 229E Not Detected (Not Detect); Coronavirus HKU1 Not Detected (Not Detect); Coronavirus NL63 Not Detected (Not Detect); Coronavirus OC43 Not Detected (Not Detect); Human Metapneumovirus Not Detected (Not Detect); Human Rhinovirus/Enterovirus Not Detected (Not Detect); Influenza A Subtype 2009 H1 Not Detected (Not Detect); Influenza B Not Detected (Not Detect); Mycoplasma pneumoniae Not Detected (Not Detect); Parainfluenza Virus 1 Not Detected (Not Detect); Parainfluenza Virus 2 Not Detected (Not Detect); Parainfluenza Virus 3 Not Detected (Not Detect); Parainfluenza Virus 4 Not Detected (Not Detect); Respiratory Syncytial Virus Not Detected (Not Detect); SARS-CoV-2 Not Detected (Not Detect)
[2022-02-23] MEDS: Melatonin 3 MG TABLET PO SCH (20:36)
[2022-02-23] MEDS: traZODone 50 MG TABLET PO SCH (20:36)
[2022-02-24] MEDS: Piperacillin/Tazobactam 3.375 GM in 0.9 % Sodium Chloride Mini Bag 100 ML IVPB SCH ×4 (00:12→23:55)
[2022-02-24] MEDS ORDERED: Vancomycin 1,500 MG/265 ML IV.SOLN IVPB SCH (02:00)
[2022-02-24] MEDS: Ipratropium/Albuterol Neb 3 ML IH SCH ×4 (04:08→21:55)
[2022-02-24] MEDS: Levothyroxine 25 MCG TABLET PO SCH (06:35)
[2022-02-24] MEDS: *HR* Enoxaparin 40 MG/0.4 ML SYRINGE SQ SCH (06:35)
[2022-02-24 07:12] LABS: Basophils % 0.6 %; Eosinophils # 0.3 K/mcL (0.0-0.6); Eosinophils % 6.5 %; Hematocrit 36.4 % (37.5-50.1); Immature Granulocytes % 0.6 % (0-4); Lymphocytes # 1.1 K/mcL (0.6-4.6); Lymphocytes % 21.9 %; Mean Corpuscular Hemoglobin 31.7 pg (28.0-33.3); Mean Corpuscular Volume 96.3 fL (83.0-100.0); Monocytes # 0.6 K/mcL (0.0-1.3); Monocytes % 10.9 %; Neutrophils # 3.1 K/mcL (1.6-8.9); Platelet Count 185 K/mcL (140-400); Red Blood Count 3.78 M/mcL (4.19-5.50); Red Cell Distribution Width 12.6 % (11.5-14.5); Segmented Neutrophils % 59.5 %; White Blood Count 5.2 K/mcL (4.3-11.1)
[2022-02-24 07:27] LABS: BUN/Creatinine Ratio 38 (6-26); Blood Urea Nitrogen 18 mg/dL (8-23); Calcium 9.3 mg/dL (8.6-10.3); Carbon Dioxide 34 mEq/L (23-29); Chloride 102 mEq/L (98-107); Glucose 123 mg/dL (70-105); Osmolality,Calculated 301 (280-300); Potassium 3.6 mEq/L (3.5-5.1); Sodium 144 mEq/L (136-145)
[2022-02-24] MEDS: Aspirin Enteric Coated 81 MG Tablet PO SCH (08:35)
[2022-02-24] MEDS: levETIRAcetam 250 MG TABLET PO SCH ×2 (08:35→20:46)
[2022-02-24] MEDS: hydroCHLOROthiazide 25 MG TABLET PO SCH (08:36)
[2022-02-24] MEDS: Divalproex (24 HR) 500 MG TABLET PO SCH (08:36)
[2022-02-24] MEDS: CarBAMazepine XR (12 hr) 100 MG TAB PO SCH ×2 (08:36→20:47)
[2022-02-24] MEDS: Cholecalciferol (D-3) 1,000 UNIT (25MCG) TABLET PO SCH ×3 (08:37→20:47)
[2022-02-24] MEDS: Potassium Chloride Elixir 20 MEQ/15 ML UDC PO SCH ×2 (08:37→20:45)
[2022-02-24] MEDS: Clobazam [Clobazam] 10 MG Tablet PO SCH ×2 (08:37→20:56)
[2022-02-24] MEDS: clonazePAM 0.5 MG TABLET PO SCH ×2 (15:12→20:46)
[2022-02-24] MEDS: Scopolamine Patch 1.5 MG PATCH.TD72 TD SCH (15:13)
[2022-02-24] MEDS: Melatonin 3 MG TABLET PO SCH (20:46)
[2022-02-24] MEDS: traZODone 50 MG TABLET PO SCH (20:48)
[2022-02-25] MEDS: Ipratropium/Albuterol Neb 3 ML IH SCH ×4 (04:26→21:42)
[2022-02-25] MEDS: Levothyroxine 25 MCG TABLET PO SCH (07:41)
[2022-02-25] MEDS: *HR* Enoxaparin 40 MG/0.4 ML SYRINGE SQ SCH (07:41)
[2022-02-25 08:12] LABS: Hematocrit 34.8 % (37.5-50.1); Hemoglobin 11.4 g/dL (12.9-16.9); Mean Corpuscular HGB Conc 32.8 g/dL (31.6-35.5); Mean Corpuscular Hemoglobin 31.4 pg (28.0-33.3); Mean Corpuscular Volume 95.9 fL (83.0-100.0); Mean Platelet Volume 10.8 fL (9.4-12.4); Platelet Count 170 K/mcL (140-400); Red Blood Count 3.63 M/mcL (4.19-5.50); Red Cell Distribution Width 12.5 % (11.5-14.5); White Blood Count 5.5 K/mcL (4.3-11.1)
[2022-02-25 08:32] LABS: BUN/Creatinine Ratio 28 (6-26); Blood Urea Nitrogen 12 mg/dL (8-23); Calcium 9.2 mg/dL (8.6-10.3); Carbon Dioxide 36 mEq/L (23-29); Chloride 100 mEq/L (98-107); Glucose 113 mg/dL (70-105); Osmolality,Calculated 295 (280-300); Potassium 3.8 mEq/L (3.5-5.1); Sodium 142 mEq/L (136-145)
[2022-02-25] MEDS: Piperacillin/Tazobactam 3.375 GM in 0.9 % Sodium Chloride Mini Bag 100 ML IVPB SCH ×3 (09:12→23:29)
[2022-02-25] MEDS: levETIRAcetam 250 MG TABLET PO SCH ×2 (09:15→21:02)
[2022-02-25] MEDS: CarBAMazepine XR (12 hr) 100 MG TAB PO SCH ×2 (09:16→21:03)
[2022-02-25] MEDS: Cholecalciferol (D-3) 1,000 UNIT (25MCG) TABLET PO SCH ×3 (09:16→21:02)
[2022-02-25] MEDS: hydroCHLOROthiazide 25 MG TABLET PO SCH (09:16)
[2022-02-25] MEDS: Divalproex (24 HR) 500 MG TABLET PO SCH (09:16)
[2022-02-25] MEDS: clonazePAM 0.5 MG TABLET PO SCH ×3 (09:16→21:04)
[2022-02-25] MEDS: Potassium Chloride Elixir 20 MEQ/15 ML UDC PO SCH ×2 (09:17→21:02)
[2022-02-25] MEDS: Clobazam [Clobazam] 10 MG Tablet PO SCH ×3 (09:17→23:29)
[2022-02-25] MEDS: Aspirin Enteric Coated 81 MG Tablet PO SCH (09:17)
[2022-02-25] MEDS: acetaZOLAMIDE 250 MG TABLET PO SCH ×2 (13:56→21:04)
[2022-02-25] MEDS: Melatonin 3 MG TABLET PO SCH (21:03)
[2022-02-25] MEDS: traZODone 50 MG TABLET PO SCH (21:03)
[2022-02-26] MEDS: Ipratropium/Albuterol Neb 3 ML IH SCH ×4 (04:42→20:52)
[2022-02-26 06:45] LABS: Basophils % 0.6 %; Eosinophils # 0.4 K/mcL (0.0-0.6); Eosinophils % 7.3 %; Hematocrit 37.4 % (37.5-50.1); Hemoglobin 12.3 g/dL (12.9-16.9); Immature Granulocytes % 0.6 % (0-4); Lymphocytes # 1.3 K/mcL (0.6-4.6); Mean Corpuscular HGB Conc 32.9 g/dL (31.6-35.5); Mean Corpuscular Hemoglobin 31.4 pg (28.0-33.3); Mean Corpuscular Volume 95.4 fL (83.0-100.0); Mean Platelet Volume 10.6 fL (9.4-12.4); Monocytes # 0.5 K/mcL (0.0-1.3); Monocytes % 8.9 %; Neutrophils # 2.9 K/mcL (1.6-8.9); Platelet Count 180 K/mcL (140-400); Red Blood Count 3.92 M/mcL (4.19-5.50); Red Cell Distribution Width 12.3 % (11.5-14.5); Segmented Neutrophils % 57.6 %; White Blood Count 5.1 K/mcL (4.3-11.1)
[2022-02-26] MEDS: Levothyroxine 25 MCG TABLET PO SCH (06:52)
[2022-02-26] MEDS: *HR* Enoxaparin 40 MG/0.4 ML SYRINGE SQ SCH (06:53)
[2022-02-26 07:46] LABS: BUN/Creatinine Ratio 14 (6-26); Blood Urea Nitrogen 7 mg/dL (8-23); Calcium 9.2 mg/dL (8.6-10.3); Carbon Dioxide 31 mEq/L (23-29); Chloride 99 mEq/L (98-107); Glucose 118 mg/dL (70-105); Osmolality,Calculated 285 (280-300); Potassium 3.6 mEq/L (3.5-5.1); Sodium 138 mEq/L (136-145)
[2022-02-26] MEDS: Potassium Chloride Elixir 20 MEQ/15 ML UDC PO SCH ×2 (09:13→20:50)
[2022-02-26] MEDS: Clobazam [Clobazam] 10 MG Tablet PO SCH ×2 (09:13→20:50)
[2022-02-26] MEDS: Cholecalciferol (D-3) 1,000 UNIT (25MCG) TABLET PO SCH ×3 (09:14→20:48)
[2022-02-26] MEDS: CarBAMazepine XR (12 hr) 100 MG TAB PO SCH ×2 (09:14→20:45)
[2022-02-26] MEDS: levETIRAcetam 250 MG TABLET PO SCH ×2 (09:14→20:46)
[2022-02-26] MEDS: clonazePAM 0.5 MG TABLET PO SCH ×3 (09:14→20:48)
[2022-02-26] MEDS: Aspirin Enteric Coated 81 MG Tablet PO SCH (09:14)
[2022-02-26] MEDS: hydroCHLOROthiazide 25 MG TABLET PO SCH (09:14)
[2022-02-26] MEDS: Divalproex (24 HR) 500 MG TABLET PO SCH (09:15)
[2022-02-26] MEDS: acetaZOLAMIDE 250 MG TABLET PO SCH ×2 (09:15→20:49)
[2022-02-26] MEDS: Piperacillin/Tazobactam 3.375 GM in 0.9 % Sodium Chloride Mini Bag 100 ML IVPB SCH ×2 (09:15→17:45)
[2022-02-26] MEDS: traZODone 50 MG TABLET PO SCH (20:47)
[2022-02-26] MEDS: Melatonin 3 MG TABLET PO SCH (20:49)
[2022-02-27] MEDS: Piperacillin/Tazobactam 3.375 GM in 0.9 % Sodium Chloride Mini Bag 100 ML IVPB SCH ×2 (01:15→08:14)
[2022-02-27] MEDS: Ipratropium/Albuterol Neb 3 ML IH SCH ×2 (05:00→09:47)
[2022-02-27] MEDS: Levothyroxine 25 MCG TABLET PO SCH (06:10)
[2022-02-27] MEDS: *HR* Enoxaparin 40 MG/0.4 ML SYRINGE SQ SCH (06:10)
[2022-02-27 07:53] LABS: BUN/Creatinine Ratio 18 (6-26); Blood Urea Nitrogen 8 mg/dL (8-23); Calcium 9.3 mg/dL (8.6-10.3); Carbon Dioxide 30 mEq/L (23-29); Chloride 101 mEq/L (98-107); Glucose 114 mg/dL (70-105); Potassium 3.6 mEq/L (3.5-5.1)
[2022-02-27 08:03] LABS: Hematocrit 40.9 % (37.5-50.1); Hemoglobin 13.3 g/dL (12.9-16.9); Mean Corpuscular HGB Conc 32.5 g/dL (31.6-35.5); Mean Corpuscular Hemoglobin 31.1 pg (28.0-33.3); Mean Corpuscular Volume 95.6 fL (83.0-100.0); Mean Platelet Volume 10.9 fL (9.4-12.4); Platelet Count 181 K/mcL (140-400); Red Blood Count 4.28 M/mcL (4.19-5.50); Red Cell Distribution Width 12.1 % (11.5-14.5); White Blood Count 5.6 K/mcL (4.3-11.1)
[2022-02-27 08:05] VITALS: O2SAT 99
[2022-02-27 08:10] LABS: Osmolality,Calculated 287 (280-300); Sodium 139 mEq/L (136-145)
[2022-02-27] MEDS: clonazePAM 0.5 MG TABLET PO SCH ×2 (08:12→13:54)
[2022-02-27] MEDS: hydroCHLOROthiazide 25 MG TABLET PO SCH (08:12)
[2022-02-27] MEDS: CarBAMazepine XR (12 hr) 100 MG TAB PO SCH (08:13)
[2022-02-27] MEDS: Divalproex (24 HR) 500 MG TABLET PO SCH (08:13)
[2022-02-27] MEDS: Aspirin Enteric Coated 81 MG Tablet PO SCH (08:13)
[2022-02-27] MEDS: levETIRAcetam 250 MG TABLET PO SCH (08:13)
[2022-02-27] MEDS: Clobazam [Clobazam] 10 MG Tablet PO SCH (10:04)
[2022-02-27 12:05] VITALS: BP 135/81; PULSE 70; RESP 20; TEMP 97.4
[2022-02-27] MEDS: Cholecalciferol (D-3) 1,000 UNIT (25MCG) TABLET PO SCH ×2 (13:45→13:54)
[2022-02-27] MEDS: Potassium Chloride Elixir 20 MEQ/15 ML UDC PO SCH (13:45)
[2022-02-27] MEDS: Scopolamine Patch 1.5 MG PATCH.TD72 TD SCH (13:54)
== END 2022-02-27 17:16 | disposition home or self-care (01) | DRG 193 ==
LOC: EMEROOPIK 05:04 → INPPIK 05:04
PROVIDERS: ADMIT Internal Medicine; ATTEND Internal Medicine